=== PATIENT | female | born 1985 | race African-American/Black ===

== ENCOUNTER 2017-02-22 10:48 | Emergency (ER) | payer OTHER ==
[~2017-02-22] VITALS: Ht 157.5 cm; Wt 68.0 kg
[2017-02-22] MEDS ORDERED: HYDROcodone/APAP 5/325MG 1 TAB TABLET PO ONE (11:45)
[2017-02-22] MEDS ORDERED: CYCLOBENZAPRINE 10 MG TABLET. PO ONE (11:45)
[2017-02-22] MEDS ORDERED: CYCL10TA2 PO (14:46)
[2017-02-22] MEDS ORDERED: HYDR-971 PO (14:46)
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
[2017-02-22 14:58] VITALS: BP 128/65
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
== END 2017-02-22 14:59 | disposition home or self-care (01) ==
LOC: ER 10:48
DX: M25.522 Pain in left elbow (principal); M54.2 Cervicalgia; E28.2 Polycystic ovarian syndrome; V89.2XXA Person injured in unspecified motor-vehicle accident, traffic, initial encounter; Y93.89 Activity, other specified; Y99.8 Other external cause status; Y92.410 Unspecified street and highway as the place of occurrence of the external cause
CPT/HCPCS: 72125; 73080; 81025; 99284-25

== ENCOUNTER 2017-03-31 09:46 | Emergency (ER) | payer SELFPAY, OTHER | END 2017-03-31 10:46 | disposition home or self-care (01) | LOC: ER 09:46 | DX: S46.912A Strain of unspecified muscle, fascia and tendon at shoulder and upper arm level, left arm, initial encounter (principal); J06.9 Acute upper respiratory infection, unspecified; M25.512 Pain in left shoulder; J45.909 Unspecified asthma, uncomplicated; E28.2 Polycystic ovarian syndrome; X58.XXXA Exposure to other specified factors, initial encounter; Y93.89 Activity, other specified; Y92.89 Other specified places as the place of occurrence of the external cause; Y99.8 Other external cause status | CPT/HCPCS: 99283 ==

== ENCOUNTER 2017-08-27 09:27 | Emergency (ER) | payer OTHER ==
[2017-08-27 09:58] LABS: URINE HCG POC HCG NEGATIVE (Negative)
[2017-08-27 10:21] LABS: BILIRUBIN,URINE NEGATIVE (NEG); CLARITY,URINE CLEAR; COLOR,URINE YELLOW; GLUCOSE,URINE NEGATIVE (NEG); NITRITE,URINE NEGATIVE (NEG); PROTEIN,URINE NEGATIVE (NEG-TRACE)
[2017-08-27 10:26] LABS: SQUAMOUS EPITHELIAL CELL,UR MOD /LPF
[2017-08-27 10:27] LABS: RBC,URINE 0 /HPF (0-2)
[2017-08-27 10:28] LABS: BACTERIA,URINE FEW /HPF (0-FEW)
[2017-08-27 10:35] LABS: BARBITURATES NEG (NEG); BENZODIAZEPINES POS (NEG); CANNABINOIDS POS (NEG); COCAINE NEG (NEG); METHADONE NEG (NEG); OPIATES NEG (NEG); PHENCYCLIDINE NEG (NEG)
[2017-08-27 10:46] LABS: AMPHETAMINE/METHAMPHETAMINE NEG (NEG); ETHANOL, URINE NEG (NEG)
[2017-08-27] MEDS: IV NORMAL SALINE 1000ML BAG 1,000 ML IV (11:05)
[2017-08-27] MEDS: MORPHINE SULFATE 10 MG/ML VIAL. IV (11:06)
[2017-08-27] MEDS: ONDANSETRON PF 4 MG/2 ML VIAL. IV (11:07)
[2017-08-27 11:20] LABS: ADD MAN DIFF? NO
[2017-08-27 11:31] LABS: BASO % 0 % (0-3); EOS # 0.1 x10^3/uL (0.0-0.7); EOS % 2 % (0-3); HEMATOCRIT 40.4 % (36.0-47.0); HEMOGLOBIN 13.3 g/dL (12.0-15.5); LYMPH # 2.1 x10^3/uL (1.0-4.8); LYMPH % 33 % (24-48); MEAN CORPUSCULAR HEMOGLOBIN 28 pg (25-35); MEAN CORPUSCULAR HGB CONC 33 g/dL (31-37); MEAN CORPUSCULAR VOLUME 85 fL (79-100); MONO # 0.5 x10^3/uL (0.0-1.1); MONO % 9 % (0-9); NEUT # 3.6 x10^3uL (1.8-7.7); NEUT % 56 % (31-73); PLATELET COUNT 300 x10^3/uL (140-400); RED BLOOD COUNT 4.74 x10^6/uL (3.50-5.40); RED CELL DISTRIBUTION WIDTH 14.3 % (11.5-14.5); WHITE BLOOD COUNT 6.3 x10^3/uL (4.0-11.0)
[2017-08-27 11:47] LABS: ANION GAP 6 (6-14); BLOOD UREA NITROGEN 11 mg/dL (7-20); BUN/CREATININE RATIO 14 (6-20); CALCIUM 8.3 mg/dL (8.5-10.1); CARBON DIOXIDE 30 mmol/L (21-32); CHLORIDE 105 mmol/L (98-107); CREATININE 0.8 mg/dL (0.6-1.0); GFR 100.6; GLUCOSE 85 mg/dL (70-99); POTASSIUM 3.7 mmol/L (3.5-5.1); SODIUM 141 mmol/L (136-145)
[2017-08-27 11:48] LABS: ETHANOL < 10 mg/dL (0-10)
[2017-08-27 11:57] LABS: ALBUMIN 3.8 g/dL (3.4-5.0); ALBUMIN/GLOBULIN RATIO 1.2 (1.0-1.7); ALK PHOS 63 U/L (46-116); ALT (SGPT) 23 U/L (14-59); AST (SGOT) 15 U/L (15-37); LIPASE 104 U/L (73-393); TOTAL BILIRUBIN 0.4 mg/dL (0.2-1.0); TOTAL PROTEIN 6.9 g/dL (6.4-8.2)
[2017-08-27] MEDS ORDERED: CONTRAST GIVEN. MC (12:00)
[2017-08-27] MEDS: IOHEXOL 300 MG/ML 100ML VIAL. IV (12:04)
[2017-08-28 14:23] LABS: CHLAMYDIA PROBE Negative (Negative); GC PROBE Negative (Negative)
== END 2017-08-27 14:05 | disposition home or self-care (01) ==
LOC: ER 14:05
DX: N83.201 Unspecified ovarian cyst, right side (principal)
CPT/HCPCS: 36415; 74177; 80053; 80307; 81001; 81025; 83690; 85025; 87491; 87591; 96361; 96374; 96375; 99285-25; G0480; J2270; J2405; J7030; Q0111; Q9967

== ENCOUNTER 2017-11-11 14:14 | Emergency (ER) | payer OTHER ==
[~2017-11-11] VITALS: Ht 157.5 cm; Wt 66.2 kg
[~2017-11-11 14:14] MED LIST: AMOX875T PO; BENZ100C PO; CYCL10TA2 PO; HYDR-971 PO; IBUP-1060 PO; NAPR500T8 PO
[2017-11-11 14:25] VITALS: BP 132/73
[2017-11-11] MEDS ORDERED: PENI500T PO (14:37)
[2017-11-11] MEDS ORDERED: HYDR-971 PO (14:37)
--- NOTE | 2017-11-11 14:37 | PHYS DOC ---
Past Medical History Past Medical History: Asthma, Other Additional Past Medical Histor: herpes simplex (vaginal), PCOS Past Surgical History: Other Additional Past Surgical Histo: Laparscopic Alcohol Use: None Drug Use: None Adult General Chief Complaint Chief Complaint: Toothache [facility] HPI Patient is a 32 year old female who presents with left upper canine tooth and gum pain that has been there for months but worse over the last month. Patient states that the pain is 8 out of 10. Patient states the gum is swollen and that she is currently starting to have hot and cold chills. Patient states that she does not have a dentist but she is going to call [facility] as soon as possible. Patient states she is allergic to tramadol and only takes vitamins daily. Review of Systems Review of Systems Constitutional: Denies fever or chills [] Eyes: Denies change in visual acuity, redness, or eye pain [] HENT: Denies nasal congestion or sore throat. Left upper canine tooth and gum swelling. [] Respiratory: Denies cough or shortness of breath [] Cardiovascular: No additional information not addressed in HPI [] GI: Denies abdominal pain, nausea, vomiting, bloody stools or diarrhea [] : Denies dysuria or hematuria [] Musculoskeletal: Denies back pain or joint pain [] Integument: Denies rash or skin lesions [] Neurologic: Denies headache, focal weakness or sensory changes [] Endocrine: Denies polyuria or polydipsia [] All other systems were reviewed and found to be within normal limits, except as documented in this note. Allergies Allergies Allergies Coded Allergies Type Severity Reaction Last Updated Verified No Known Medication Allergies Allergy Unknown 11/11/17 Yes tramadol Adverse Reaction Intermediate Nausea 11/11/17 Yes Physical Exam Physical Exam Constitutional: Well developed, well nourished, no acute distress, non-toxic appearance. [] HENT: Normocephalic, atraumatic, bilateral external ears normal, oropharynx moist, no oral exudates, nose normal. Left upper canine tooth is broken half off and brown in color. Gum line is red and slightly swollen. [] Eyes: PERRLA, EOMI, conjunctiva normal, no discharge. [] Neck: Normal range of motion, no tenderness, supple, no stridor. [] Cardiovascular:Heart rate regular rhythm, no murmur [] Lungs & Thorax: Bilateral breath sounds clear to auscultation [] Abdomen: Bowel sounds normal, soft, no tenderness, no masses, no pulsatile masses. [] Skin: Warm, dry, no erythema, no rash. [] Back: No tenderness, no CVA tenderness. [] Extremities: No tenderness, no cyanosis, no clubbing, ROM intact, no edema. [] Neurologic: Alert and oriented X 3, normal motor function, normal sensory function, no focal deficits noted. [] Psychologic: Affect normal, judgement normal, mood normal. [] Current Patient Data Vital Signs Vital Signs Date Time Temp Pulse Resp B/P (MAP) Pulse Ox O2 Delivery O2 Flow Rate FiO2 11/11/17 14:25 99.2 93 16 132/73 (92) 99 Room Air 99.2 EKG EKG [] Radiology/Procedures Radiology/Procedures [] Course & Med Decision Making Course & Med Decision Making Upon examination the patient's left upper canine is half broken off and brown in color. Patient at gum line is read and slightly swollen. Patient states is been like this for months but over the last month the pain is getting worse. Agent states that she is going to call [facility] on Monday so that she can establish a dentist since the dentist that she was going to does not take her insurance. Patient rates 8 out of 10 and states she is taking ibuprofen for pain. Patient is given a prescription for hydrocodone and penicillin antibiotic. Patient is to call [facility] on Monday for follow-up care and is discharged home. Patient is agreeable to this discharge plan Staff Physician Addendum: I was working in the ER during the course of this patient's visit. I was available for consultation as needed, but I was not directly involved in the care of this patient. Kurt Mantilla DO Staff Physician Nisha Disclaimer Nisha Disclaimer This electronic medical record was generated, in whole or in part, using a voice recognition dictation system. Departure Departure Impression: Primary Impression: Dental caries Disposition: 01 HOME, SELF-CARE Condition: STABLE Referrals: UNKNOWN PCP NAME (PCP) Patient Instructions: Dental Caries Additional Instructions: Go to the Dentist as we talked about. Call [facility] as you had mentioned. Take medications as prescribed. Scripts Penicillin V Potassium (PENICILLIN V POTASSIUM) 500 Mg Tablet 1 TAB PO QID for 7 Days, #28 TAB Prov: BAFUSELLYN APRN 11/11/17 Hydrocodone/Apap 5-325 (NORCO 5-325 TABLET) 1 Each Tablet 1 TAB PO PRN Q6HRS PRN for PAIN, #5 TAB 0 Refills Prov: ELLYN LYLE APRN 11/11/17 ELLYN LYLE APRN Nov 11, 2017 14:37 KURT MANTILLA DO Nov 12, 2017 06:27
== END 2017-11-11 14:42 | disposition home or self-care (01) ==
LOC: ER 14:14
DX: K02.9 Dental caries, unspecified (principal); J45.909 Unspecified asthma, uncomplicated; Z88.6 Allergy status to analgesic agent
CPT/HCPCS: 99283

== ENCOUNTER 2021-01-08 06:45 | Emergency (ER) | payer OTHER ==
[~2021-01-08] VITALS: Ht 157.5 cm; Wt 84.0 kg
[~2021-01-08 06:45] MED LIST changes: +HYDR-3164 PO; -HYDR-971 PO; +PENI500T PO
[2021-01-08] MEDS ORDERED: IV NORMAL SALINE 1000ML BAG 1,000 ML IV ONE (07:15)
[2021-01-08] MEDS ORDERED: ONDANSETRON PF 4 MG/2 ML VIAL. IVP ONE (07:15)
--- NOTE | 2021-01-08 07:15 | PHYS DOC ---
Past Medical History Past Medical History: Asthma, Other Additional Past Medical Histor: herpes simplex (vaginal), PCOS Past Surgical History: Other Additional Past Surgical Histo: Laparoscopic Smoking Status: Current Every Day Smoker Alcohol Use: None Drug Use: None General Adult EDM: Chief Complaint: ABDOMINAL PAIN HPI: HPI: 35-year-old female presents with 3-day history of right lower quadrant abdominal discomfort with associated nausea. Patient reports she took tests x 4 last week that were positive. Reports 2 days ago had a 1 day episode of bleeding which is now resolved and yesterday took a repeat test that was "faintly positive ". Patient reports her last menstrual period was 12/16/2020. Patient reports this would be her first . Denies any fever or chills. Denies trauma. Denies dysuria or hematuria. Denies constipation or diarrhea. Denies vaginal discharge. Review of Systems: Review of Systems: Constitutional: Denies fever or chills Eyes: Denies redness or eye pain HENT: Denies nasal congestion or sore throat Respiratory: Denies cough or shortness of breath Cardiovascular: Denies chest pain or palpitations GI: Reports right lower quadrant abdominal pain and nausea; denies vomiting or diarrhea /[facility]: Denies dysuria or hematuria; reports possible Musculoskeletal: Denies back pain or joint pain Integument: Denies rash or skin lesions Neurologic: Denies headache, focal weakness or sensory changes Complete systems were reviewed and found to be within normal limits, except as documented in this note. Heart Score: C/O Chest Pain: N/A Current Medications: Current Medications Medications (Trade) Dose Ordered Sig/[facility] Start Time Stop Time Status Last Admin Dose Admin Ondansetron HCl (Zofran) 4 mg 1X ONCE 01/08/21 07:15 01/08/21 07:16 UNV Sodium Chloride 1,000 ml @ 1,000 mls/hr 1X ONCE 01/08/21 07:15 01/08/21 08:14 UNV Allergies: Allergies: Allergies Coded Allergies Type Severity Reaction Last Updated Verified No Known Medication Allergies Allergy Unknown 11/11/17 Yes tramadol Adverse Reaction Intermediate Nausea 11/11/17 Yes Physical Exam: PE: Constitutional: Well developed, well nourished, no acute distress, non-toxic appearance HENT: Normocephalic, atraumatic Eyes: PConjunctiva normal, no discharge Neck: Normal range of motion, supple Lungs & Thorax: No respiratory distress, equal chest rise and fall Abdomen: Soft, no tenderness, no guarding/rebound tenderness/distention Skin: Warm, dry, no erythema, no rash Back: No tenderness, no CVA tenderness Extremities: No tenderness, ROM intact, no edema Neurologic: Alert and oriented X 3, no focal deficits noted Psychologic: Affect normal, judgment normal EKG: EKG: [] Radiology/Procedures: Radiology/Procedures: [] Course & Med Decision Making: Course & Med Decision Making Pertinent Lab studies reviewed. (See chart for details) Patient presents with 3-day history of right lower quadrant abdominal pain. Patient reports recent positive test. Last menstrual period was 12/16/2020. Patient reports she had a 1 day episode of vaginal bleeding that has resolved. Abdomen nonperitoneal. IV fluid hydration provided and nausea addressed. Labs obtained and posted to chart. Beta-hCG negative for . Labs unremarkable. Physical exam more pelvic in nature. Pelvic ultrasound ordered. Patient declined pelvic exam. Reports no vaginal discharge or active bleeding. Nisha Disclaimer: Nisha Disclaimer: This electronic medical record was generated, in whole or in part, using a voice recognition dictation system. Departure Departure Referrals: UNKNOWN PCP NAME (PCP) ROBYN LLAMAS DO Jan 08, 2021 07:15
[2021-01-08 07:42] LABS: BILIRUBIN,URINE NEGATIVE (NEG); CLARITY,URINE CLEAR; COLOR,URINE YELLOW; NITRITE,URINE NEGATIVE (NEG); PH,URINE 6.5 (<5.0-8.0); PROTEIN,URINE NEGATIVE (NEG-TRACE); UROBILINOGEN,URINE 0.2 mg/dL (0.2 mg/dL)
[2021-01-08 07:47] LABS: BASO % 1 % (0-3); EOS # 0.1 x10^3/uL (0.0-0.7); EOS % 2 % (0-3); HEMATOCRIT 42.2 % (36.0-47.0); HEMOGLOBIN 13.9 g/dL (12.0-15.5); LYMPH % 36 % (24-48); MEAN CORPUSCULAR HEMOGLOBIN 28 pg (25-35); MEAN CORPUSCULAR HGB CONC 33 g/dL (31-37); MEAN CORPUSCULAR VOLUME 85 fL (79-100); MONO # 0.4 x10^3/uL (0.0-1.1); MONO % 7 % (0-9); NEUT % 54 % (31-73); PLATELET COUNT 277 x10^3/uL (140-400); RED BLOOD COUNT 4.95 x10^6/uL (3.50-5.40); RED CELL DISTRIBUTION WIDTH 13.1 % (11.5-14.5); WHITE BLOOD COUNT 5.6 x10^3/uL (4.0-11.0)
[2021-01-08 07:53] LABS: BACTERIA,URINE 0 /HPF (0-FEW); RBC,URINE 0 /HPF (0-2); WBC,URINE OCC /HPF (0-4)
[2021-01-08 08:02] LABS: CALCIUM 8.6 mg/dL (8.5-10.1); CREATININE 0.9 mg/dL (0.6-1.0); GFR 86.2; POTASSIUM 4.2 mmol/L (3.5-5.1)
[2021-01-08 08:09] LABS: ALBUMIN 3.8 g/dL (3.4-5.0); ALBUMIN/GLOBULIN RATIO 1.1 (1.0-1.7); MAGNESIUM 2.1 mg/dL (1.8-2.4); TOTAL BILIRUBIN 0.3 mg/dL (0.2-1.0); TOTAL PROTEIN 7.2 g/dL (6.4-8.2)
[2021-01-08 08:50] VITALS: BP 127/78
== END 2021-01-08 09:38 | disposition left against medical advice (07) ==
LOC: ER 06:45
DX: O26.891 Other specified pregnancy related conditions, first trimester (principal); R10.31 Right lower quadrant pain; R11.0 Nausea; O99.511 Diseases of the respiratory system complicating pregnancy, first trimester; J45.909 Unspecified asthma, uncomplicated; O99.331 Smoking (tobacco) complicating pregnancy, first trimester; Z3A.00 Weeks of gestation of pregnancy not specified; Z88.6 Allergy status to analgesic agent
CPT/HCPCS: 36415; 80053; 81001; 83690; 83735; 84702; 85025; 96361; 96374; 99284; J2405; J7030